=== PATIENT | male | born 1970 | race African-American/Black ===

== ENCOUNTER 2018-12-27 08:32 | Inpatient (IN) | payer OTHER ==
[2018-12-27 10:05] VITALS: BMI 28.8
--- NOTE | 2018-12-27 11:11 | HP ---
CIWA Score Nausea/Vomitin-No Nausea/No Vomiting Muscle Tremors: 1-None Visible, but [place] Anxiety: 1-Mildly Anxious Agitation: 1-Slight > Activity Paroxysmal Sweats: No Perspiration Orientation: 0-Oriented Tacttile Disturbances: 1-Very Mild Itch/Numbness Auditory Disturbances: 1-Very Mild Visual Disturbances: 0-None Headache: 1-Very Mild CIWA-Ar Total Score: 6 - Admission Criteria OASAS Guidelines: Admission for Medically Managed Detox: Requires at least one of the followin. CIWA greater than 12 2. Seizures within the past 24 hours 3. Delirium tremens within the past 24 hours 4. Hallucinations within the past 24 hours 5. Acute intervention needed for co occurring medical disorder 6. Acute intervention needed for co occurring psychiatric disorder 7. Severe withdrawal that cannot be handled at a lower level of care (continued vomiting, continued diarrhea, abnormal vital signs) requiring intravenous medication and/or fluids 8. Admission ROS [facility] - HPI Chief Complaint: i need help to stop using cocaine and marijuna Allergies/Adverse Reactions: Allergies Allergy/AdvReac Type Severity Reaction Status Date / Time No Known Allergies Allergy Verified 12/27/18 09:56 History of Present Illness: this 48 years old male with cocaine and marijuana dependence seeking rehab, last rehab 05/11 in [place] cad s/p angioplasty with 2 stents at [facility] longest sobriety 6 months has been in out patient program in [place] 6 months positive ppd for rehab as protocol Exam Limitations: No Limitations - Ebola screening Have you traveled outside of the country in the last 21 days: No (N) Have you had contact with anyone from an Ebola affected area: No Do you have a fever: No - Review of Systems Constitutional: No Symptoms Reported EENT: reports: No Symptoms Reported Respiratory: reports: No Symptoms reported Cardiac: reports: No Symptoms Reported, Other (cad s/p angioplasty with stent 2007.11/22/18 [facility]) GI: reports: No Symptoms Reported : reports: No Symptoms Reported Musculoskeletal: reports: No Symptoms Reported Integumentary: reports: No Symptoms Reported Neuro: reports: No Symptoms reported Endocrine: reports: No Symptoms Reported Hematology: reports: No Symptoms Reported Psychiatric: reports: No Sypmtoms Reported, Judgement Intact, Mood/Affect Appropiate, Orientated x3 Other Systems: Reviewed and Negative Patient History - Patient Medical History Hx Anemia: No Hx Asthma: No Hx Chronic Obstructive Pulmonary Disease (COPD): No Hx Cancer: No Hx Cardiac Disorders: Yes (cad s/p angioplasty with stent 11/22/18 ,2007) Hx Congestive Heart Failure: No Hx Hypertension: Yes (no med) Hx Hypercholesterolemia: Yes (on med atrovastin 80 mgs po hs) Hx Pacemaker: No HX Cerebrovascular Accident: No Hx Seizures: No Hx Dementia: No Hx Diabetes: No Hx Gastrointestinal Disorders: No Hx Liver Disease: No Hx Genitourinary Disorders: No Hx Sexually Transmitted Disorders: No Hx Renal Disease (ESRD): No Hx Thyroid Disease: No Hx Human Immunodeficiency Virus (HIV): No (last 11/10 negative) Hx Hepatitis C: No Hx Depression: Yes (NOT ON ANY MEDS) Hx Suicide Attempt: No Hx Bipolar Disorder: No Hx Schizophrenia: No Other Medical History: no suicidal,no himicidal - Patient Surgical History Past Surgical History: Yes Hx Neurologic Surgery: No Hx Cataract Extraction: No Hx Cardiac Surgery: Yes (2 coronary stents 2007,11/22/18 at [facility]) Hx Lung Surgery: No Hx Breast Surgery: No Hx Breast Biopsy: No Hx Abdominal Surgery: No Hx Appendectomy: No Hx Cholecystectomy: No Hx Genitourinary Surgery: No Hx Section: No Hx Orthopedic Surgery: No Anesthesia Reaction: No - PPD History Previous Implant?: Yes Documented Results: Positive w/o proof Implanted On Prior [facility] Admission?: No Date: 11/12/12 PPD to be Administered?: No - Smoking Cessation Smoking history: Former smoker Have you smoked in the past 12 months: No Aproximately how many cigarettes per day: 1 If you are a former smoker, when did you quit?: 2 years ago Cigars Per Day: 2 Hx Chewing Tobacco Use: No Initiated information on smoking cessation: Yes 'Breaking Loose' booklet given: 12/27/18 - Substance & Tx. History Hx Alcohol Use: No Hx Substance Use: Yes Substance Use Type: Cocaine, Marijuana Hx Substance Use Treatment: Yes (05/11 in [place]) - Substances abused Cocaine Substance route: Smoking Frequency: Daily Amount used: 1/2 GRAM Age of first use: 14 Date of last use: 12/26/18 Marijuana/Hashish Substance route: Smoking Frequency: 1-2 times per week Amount used: 10$ Age of first use: 14 Date of last use: 12/27/18 Family Disease History - Family Disease History Family Disease History: Heart Disease: Father (HTN,PACEMAKER), Mother (HTN), Sister (HTN) Admission Physical Exam S - Vital Signs Vital Signs: Vital Signs - 24 hr 12/27/18 10:01 Temperature 97.9 F Pulse Rate 82 Respiratory 18 Rate Blood Pressure 150/79 - Physical General Appearance: Yes: Within Normal Limits HEENTM: Yes: Normal ENT Inspection, MERLY, Pharynx Normal Respiratory: Yes: Within Normal Limits, Lungs Clear, Normal Breath Sounds Neck: Yes: Within Normal Limits, Supple, Trachea in good position Breast: Yes: Within Normal Limits Cardiology: Yes: Within Normal Limits, Regular Rhythm, Regular Rate, S1, S2 Abdominal: Yes: Within Normal Limits Genitourinary: Yes: Within Normal Limits Back: Yes: Within Normal Limits Musculoskeletal: Yes: Within Normal Limits Extremities: Yes: Within Normal Limits Neurological: Yes: garage mechanic II-XII NML intact, Alert, Motor Strength 5/5 Integumentary: Yes: Within Normal Limits Lymphatic: Yes: Within Normal Limits - Diagnostic (1) Cocaine dependence Current Visit: No Status: Active (2) coronary artery disease Current Visit: No Status: Active (3) Cannabis dependence Current Visit: No Status: Acute (4) Status post angioplasty with stent Current Visit: Yes Status: Acute Cleared for Admission [facility] - Detox or Rehab Claeared for Rehab Admission: Yes Breathalyzer - Breathalyzer Breathalyzer: 0 Urine Drug Screen - Test Device Lot number: [id number] Expiration date: 09/21/20 - Control Is test valid?: Yes - Results Drug screen NEGATIVE: No Urine drug screen results: THC-Marijuana, ANISA-Cocaine Inpatient Rehab Admission - Rehab Decision to Admit Inpatient rehab admission?: Yes - Initial Determination Are CD services needed?: Yes Free of communicable disease: Yes Not in need of hospitalization: Yes - Rehab Admission Criteria Previous failed treatment: Yes Poor recovery environment: Yes Comorbidities: Yes Lacks judgement: No Patient is meeting Inpatient Rehab admission criteria:: Yes
[2018-12-27] MEDS ORDERED: hydrOXYzine PAMOATE 50 MG CAPSULE (FP) PO PRN (11:26)
[2018-12-27] MEDS ORDERED: MAGNESIUM CITRATE 300 ML BOTTLE PO PRN (11:26)
[2018-12-27] MEDS ORDERED: ACETAMINOPHEN 325 MG TABLET (FP) PO PRN (11:26)
[2018-12-27] MEDS ORDERED: MAG HYDROX/AL HYDROX/SIMETH 30 ML UNIT-DOSE CUP PO PRN (11:26)
[2018-12-27] MEDS ORDERED: P-EPHED 60MG/TRIPROLIDI 2.5MG TABLET PO PRN (11:26)
[2018-12-27] MEDS ORDERED: guaiFENesin 200 MG/10 ML 10 ML UNIT-DOSE CUPS PO PRN (11:26)
[2018-12-27] MEDS ORDERED: LOPERAMIDE HCL 2 MG CAPSULE PO PRN (11:26)
[2018-12-27] MEDS ORDERED: MAGNESIUM HYDROX 2400MG/30ML ORAL SUSPENSION 30 ML CUP PO PRN (11:26)
[2018-12-27] MEDS: ASPIRIN 81 MG CHEWABLE TABLETS PO SCH (12:13)
[2018-12-27] MEDS: MENTHOL/PHENOL 1 EACH UD MM PRN ×2 (12:35→21:40)
--- NOTE | 2018-12-27 12:48 | EKG ---
Test Reason : Blood Pressure : / mmHG Vent. Rate : 074 BPM Atrial Rate : 074 BPM P-R Int : 140 ms QRS Dur : 098 ms QT Int : 388 ms P-R-T Axes : 053 055 054 degrees QTc Int : 430 ms NORMAL SINUS RHYTHM MODERATE VOLTAGE CRITERIA FOR LVH, MAY BE NORMAL VARIANT BORDERLINE ECG WHEN COMPARED WITH ECG OF 16-OCT-2011 00:44, NO SIGNIFICANT CHANGE WAS FOUND Confirmed by CHECO PEARCE MD ([id number]) on 12/27/2018 12:48:07 PM Referred By: Confirmed By:CHECO PEARCE MD
[2018-12-27] MEDS ORDERED: LISINOPRIL 20 MG TABLET (FP) PO ONE (13:45)
[2018-12-27] MEDS: ISOSORBIDE DINITRATE 20 MG TABLET (FP) PO SCH ×2 (15:00→17:31)
[2018-12-27 15:05] LABS: HEMATOCRIT 43.5 % (35.4-49); HEMOGLOBIN 14.4 GM/dL (11.7-16.9); MCH 29.9 pg (25.7-33.7); MEAN CELL VOLUME 90.5 fl (80-96); MEAN PLT VOLUME 7.7 fl (7.5-11.1); PLATELET COUNT 324 K/MM3 (134-434); RDW 13.7 % (11.9-15.9); WHITE BLOOD COUNT 12.6 K/mm3 (4.0-10.0)
[2018-12-27 15:07] LABS: ALBUMIN 4.3 g/dl (3.4-5.0); BILIRUBIN,TOTAL 0.6 mg/dL (0.2-1); CALCIUM 9.1 mg/dL (8.5-10.1); CREATININE 1.4 mg/dL (0.55-1.3); POTASSIUM 4.2 mmol/L (3.5-5.1)
[2018-12-27 15:15] LABS: EPI CELLS 1.4 /HPF (0-5/HPF); HYALINE CASTS 8 /lpf (0-8); URINE APPEARANCE CLOUDY; URINE BACTERIA 118.7 /hpf (NEGATIVE); URINE BILIRUBIN NEGATIVE (NEGATIVE); URINE COLOR YELLOW; URINE GLUCOSE (UA) NEGATIVE (NEGATIVE); URINE KETONE 1+ (NEGATIVE); URINE LEUK ESTERASE 3+ (NEGATIVE); URINE NITRITE NEGATIVE (NEGATIVE); URINE PROTEIN TRACE (NEGATIVE); URINE RBC 6 /hpf (0-4); URINE UROBILINOGEN 0.2 mg/dL (0.2-1.0); URINE WBC 687 /hpf (0-5)
[2018-12-27] MEDS: THIAMINE HCL 100 MG TABLET (FP) PO SCH (21:39)
[2018-12-27] MEDS: CYCLOBENZAPRINE HCL 10 MG TABLET (FP) PO SCH (21:39)
[2018-12-27] MEDS: ATORVASTATIN CA 80 MG TABLET (FP) PO SCH (21:39)
[2018-12-28] MEDS: MENTHOL/PHENOL 1 EACH UD MM PRN ×3 (07:49→21:50)
[2018-12-28] MEDS: PRENATAL VITAMINS W/ FOLIC ACID TABLET (FP) PO SCH (10:39)
[2018-12-28] MEDS: ASPIRIN 81 MG CHEWABLE TABLETS PO SCH (10:39)
[2018-12-28] MEDS: LISINOPRIL 10 MG TABLET (FP) PO SCH (10:39)
[2018-12-28] MEDS: ISOSORBIDE DINITRATE 20 MG TABLET (FP) PO SCH ×2 (10:40→17:08)
--- NOTE | 2018-12-28 10:52 | PN ---
[facility] Progress Note Note: LAB REVIEW: Laboratory Tests 12/27/18 12/27/18 12/27/18 11:45 11:45 11:45 WBC 12.6 H RBC 4.80 Hgb 14.4 Hct 43.5 MCV 90.5 MCH 29.9 MCHC 33.0 RDW 13.7 Plt Count 324 MPV 7.7 Sodium 136 Potassium 4.2 Chloride 101 Carbon Dioxide 26 Anion Gap 9 BUN 25 H Creatinine 1.4 H Est GFR (CKD-EPI)AfAm 67.42 Est GFR (CKD-EPI)NonAf 58.17 Random Glucose 80 Calcium 9.1 Total Bilirubin 0.6 AST 77 H ALT 96 H Alkaline Phosphatase 115 Total Protein 8.0 Albumin 4.3 Triglycerides 83 Cholesterol 184 Total LDL Cholesterol 94 HDL Cholesterol 74 H Urine Color Urine Appearance Urine pH Ur Specific [place] Urine Protein Urine Glucose (UA) Urine Ketones Urine Blood Urine Nitrite Urine Bilirubin Urine Urobilinogen Ur Leukocyte Esterase Urine WBC (Auto) Urine RBC (Auto) Urine Casts (Auto) U Epithel Cells (Auto) Urine Bacteria (Auto) RPR Titer Nonreactive 12/27/18 11:45 WBC RBC Hgb Hct MCV MCH MCHC RDW Plt Count MPV Sodium Potassium Chloride Carbon Dioxide Anion Gap BUN Creatinine Est GFR (CKD-EPI)AfAm Est GFR (CKD-EPI)NonAf Random Glucose Calcium Total Bilirubin AST ALT Alkaline Phosphatase Total Protein Albumin Triglycerides Cholesterol Total LDL Cholesterol HDL Cholesterol Urine Color Yellow Urine Appearance Cloudy Urine pH 5.0 Ur Specific [place] 1.028 Urine Protein Trace Urine Glucose (UA) Negative Urine Ketones 1+ H Urine Blood 1+ H Urine Nitrite Negative Urine Bilirubin Negative Urine Urobilinogen 0.2 Ur Leukocyte Esterase 3+ H Urine WBC (Auto) 687 Urine RBC (Auto) 6 Urine Casts (Auto) 8 U Epithel Cells (Auto) 1.4 Urine Bacteria (Auto) 118.7 RPR Titer ABN LABS NOTED PLAN;REPEAT CBC;CMP;UA ON 12/30/18
--- NOTE | 2018-12-28 15:54 | PN ---
[facility] Progress Note (SOAP) Subjective: C/O SORETHROAT FOR THREE DAYS. REPORTS HE WAS GIVEN THROAT LOZENGES BUT NOT EFFECTIVE. DENIES COUGH OR RUNNY NOSE. HX OF ASTHMA. PT REPORTS HE SNORES WHILE SLEEPING. Vital Signs - 24 hr 12/27/18 12/28/18 12/28/18 17:35 00:30 03:30 Pulse Rate 86 Respiratory 18 18 18 Rate Blood Pressure 135/70 12/28/18 12/28/18 07:12 10:00 Pulse Rate 71 79 Respiratory 18 Rate Blood Pressure 134/80 148/78 Objective: 12/28/18 15:54 Vital Signs - 24 hr 12/27/18 12/28/18 12/28/18 17:35 00:30 03:30 Pulse Rate 86 Respiratory 18 18 18 Rate Blood Pressure 135/70 12/28/18 12/28/18 07:12 10:00 Pulse Rate 71 79 Respiratory 18 Rate Blood Pressure 134/80 148/78 CARDIAC:S1 S2 RRR (-)MM THROAT EXAM:WNL LUNGS:CTA Assessment: 12/28/18 15:57 NORMAL EXAM-UNREMARKABLE Plan: CEPASTAT LOZENGES PRN FOLLOW UP WITH STAFF IF NOT BETTER.
[2018-12-28] MEDS: CYCLOBENZAPRINE HCL 10 MG TABLET (FP) PO SCH (21:50)
[2018-12-28] MEDS: THIAMINE HCL 100 MG TABLET (FP) PO SCH (21:50)
[2018-12-28] MEDS: ATORVASTATIN CA 80 MG TABLET (FP) PO SCH (21:50)
[2018-12-29 10:00] LABS: EPI CELLS 0.1 /HPF (0-5/HPF); HYALINE CASTS 0 /lpf (0-8); PH,URINE 6.5 (5.0-8.0); URINE APPEARANCE CLOUDY; URINE BACTERIA 410.2 /hpf (NEGATIVE); URINE BILIRUBIN NEGATIVE (NEGATIVE); URINE COLOR YELLOW; URINE GLUCOSE (UA) NEGATIVE (NEGATIVE); URINE KETONE NEGATIVE (NEGATIVE); URINE LEUK ESTERASE 3+ (NEGATIVE); URINE NITRITE NEGATIVE (NEGATIVE); URINE PROTEIN NEGATIVE (NEGATIVE); URINE RBC 3 /hpf (0-4); URINE UROBILINOGEN 0.2 mg/dL (0.2-1.0); URINE WBC 286 /hpf (0-5)
[2018-12-29] MEDS: ISOSORBIDE DINITRATE 20 MG TABLET (FP) PO SCH ×2 (11:13→17:03)
[2018-12-29] MEDS: ASPIRIN 81 MG CHEWABLE TABLETS PO SCH (11:13)
[2018-12-29] MEDS: LISINOPRIL 10 MG TABLET (FP) PO SCH (11:13)
[2018-12-29] MEDS: PRENATAL VITAMINS W/ FOLIC ACID TABLET (FP) PO SCH (11:13)
[2018-12-29] MEDS: MENTHOL/PHENOL 1 EACH UD MM PRN ×2 (11:14→21:42)
[2018-12-29] MEDS: ATORVASTATIN CA 80 MG TABLET (FP) PO SCH (21:41)
[2018-12-29] MEDS: THIAMINE HCL 100 MG TABLET (FP) PO SCH (21:41)
[2018-12-29] MEDS: CYCLOBENZAPRINE HCL 10 MG TABLET (FP) PO SCH (21:41)
[2018-12-30] MEDS: LISINOPRIL 10 MG TABLET (FP) PO SCH (10:15)
[2018-12-30] MEDS: ISOSORBIDE DINITRATE 20 MG TABLET (FP) PO SCH ×2 (10:15→17:29)
[2018-12-30] MEDS: ASPIRIN 81 MG CHEWABLE TABLETS PO SCH (10:15)
[2018-12-30] MEDS: PRENATAL VITAMINS W/ FOLIC ACID TABLET (FP) PO SCH (10:15)
[2018-12-30] MEDS: MENTHOL/PHENOL 1 EACH UD MM PRN ×2 (10:16→21:51)
[2018-12-30 12:43] LABS: ALBUMIN 3.8 g/dl (3.4-5.0); BASO % 0.7 % (0-2.0); BILIRUBIN,TOTAL 0.4 mg/dL (0.2-1); BLOOD UREA NITROGEN 13.4 mg/dL (7-18); CALCIUM 9.2 mg/dL (8.5-10.1); CREATININE 1.2 mg/dL (0.55-1.3); EOS % 6.6 % (0-4.5); HEMOGLOBIN 13.4 GM/dL (11.7-16.9); LYMPH % 24.7 % (8-40); MCHC 33.4 g/dl (32.0-35.9); MEAN CELL VOLUME 89.9 fl (80-96); MEAN PLT VOLUME 7.7 fl (7.5-11.1); MONO % 11.7 % (3.8-10.2); NEUT % 56.3 % (42.8-82.8); RBC 4.45 M/mm3 (4.00-5.60); RDW 13.4 % (11.9-15.9); TOT PROT 7.1 g/dl (6.4-8.2); WHITE BLOOD COUNT 5.5 K/mm3 (4.0-10.0)
[2018-12-30 19:20] LABS: PLATELET COUNT 247 K/MM3 (134-434)
[2018-12-30] MEDS: CYCLOBENZAPRINE HCL 10 MG TABLET (FP) PO SCH (21:51)
[2018-12-30] MEDS: THIAMINE HCL 100 MG TABLET (FP) PO SCH (21:51)
[2018-12-30] MEDS: ATORVASTATIN CA 80 MG TABLET (FP) PO SCH (21:51)
[2018-12-31] MEDS: PRENATAL VITAMINS W/ FOLIC ACID TABLET (FP) PO SCH (10:10)
[2018-12-31] MEDS: LISINOPRIL 10 MG TABLET (FP) PO SCH (10:10)
[2018-12-31] MEDS: ASPIRIN 81 MG CHEWABLE TABLETS PO SCH (10:10)
[2018-12-31] MEDS: ISOSORBIDE DINITRATE 20 MG TABLET (FP) PO SCH ×2 (10:10→17:26)
[2018-12-31] MEDS: CYCLOBENZAPRINE HCL 10 MG TABLET (FP) PO SCH (21:50)
[2018-12-31] MEDS: THIAMINE HCL 100 MG TABLET (FP) PO SCH (21:50)
[2018-12-31] MEDS: MENTHOL/PHENOL 1 EACH UD MM PRN (21:51)
[2018-12-31] MEDS: ATORVASTATIN CA 80 MG TABLET (FP) PO SCH (21:51)
[2019-01-01] MEDS: ISOSORBIDE DINITRATE 20 MG TABLET (FP) PO SCH ×2 (10:43→17:46)
[2019-01-01] MEDS: LISINOPRIL 10 MG TABLET (FP) PO SCH (10:43)
[2019-01-01] MEDS: ASPIRIN 81 MG CHEWABLE TABLETS PO SCH (10:43)
[2019-01-01] MEDS: PRENATAL VITAMINS W/ FOLIC ACID TABLET (FP) PO SCH (10:43)
[2019-01-01] MEDS: THIAMINE HCL 100 MG TABLET (FP) PO SCH (21:35)
[2019-01-01] MEDS: ATORVASTATIN CA 80 MG TABLET (FP) PO SCH (21:35)
[2019-01-01] MEDS: CYCLOBENZAPRINE HCL 10 MG TABLET (FP) PO SCH (21:35)
[2019-01-02] MEDS: PRENATAL VITAMINS W/ FOLIC ACID TABLET (FP) PO SCH (10:49)
[2019-01-02] MEDS: ASPIRIN 81 MG CHEWABLE TABLETS PO SCH (10:49)
[2019-01-02] MEDS: LISINOPRIL 10 MG TABLET (FP) PO SCH (10:49)
[2019-01-02] MEDS: ISOSORBIDE DINITRATE 20 MG TABLET (FP) PO SCH ×2 (10:49→18:00)
[2019-01-02] MEDS: CYCLOBENZAPRINE HCL 10 MG TABLET (FP) PO SCH (21:50)
[2019-01-02] MEDS: THIAMINE HCL 100 MG TABLET (FP) PO SCH (21:50)
[2019-01-02] MEDS: ATORVASTATIN CA 80 MG TABLET (FP) PO SCH (21:50)
--- NOTE | 2019-01-03 09:46 | PN ---
[facility] Progress Note Note: LAB REVIEW-REPEAT UA; RESULT: Laboratory Tests 12/27/18 12/27/18 12/27/18 11:45 11:45 11:45 WBC 12.6 H RBC 4.80 Hgb 14.4 Hct 43.5 MCV 90.5 MCH 29.9 MCHC 33.0 RDW 13.7 Plt Count 324 MPV 7.7 Absolute Neuts (auto) Neutrophils % Lymphocytes % Monocytes % Eosinophils % Basophils % Nucleated RBC % Sodium 136 Potassium 4.2 Chloride 101 Carbon Dioxide 26 Anion Gap 9 BUN 25 H Creatinine 1.4 H Est GFR (CKD-EPI)AfAm 67.42 Est GFR (CKD-EPI)NonAf 58.17 Random Glucose 80 Calcium 9.1 Total Bilirubin 0.6 AST 77 H ALT 96 H Alkaline Phosphatase 115 Total Protein 8.0 Albumin 4.3 Triglycerides 83 Cholesterol 184 Total LDL Cholesterol 94 HDL Cholesterol 74 H Urine Color Urine Appearance Urine pH Ur Specific [place] Urine Protein Urine Glucose (UA) Urine Ketones Urine Blood Urine Nitrite Urine Bilirubin Urine Urobilinogen Ur Leukocyte Esterase Urine WBC (Auto) Urine RBC (Auto) Urine Casts (Auto) U Epithel Cells (Auto) Urine Bacteria (Auto) RPR Titer Nonreactive 12/27/18 12/29/18 12/30/18 11:45 07:45 10:20 WBC 5.5 RBC 4.45 Hgb 13.4 Hct 40.0 MCV 89.9 MCH 30.0 MCHC 33.4 RDW 13.4 Plt Count 247 D MPV 7.7 Absolute Neuts (auto) 3.1 Neutrophils % 56.3 Lymphocytes % 24.7 Monocytes % 11.7 H Eosinophils % 6.6 H D Basophils % 0.7 Nucleated RBC % 0 Sodium Potassium Chloride Carbon Dioxide Anion Gap BUN Creatinine Est GFR (CKD-EPI)AfAm Est GFR (CKD-EPI)NonAf Random Glucose Calcium Total Bilirubin AST ALT Alkaline Phosphatase Total Protein Albumin Triglycerides Cholesterol Total LDL Cholesterol HDL Cholesterol Urine Color Yellow Yellow Urine Appearance Cloudy Cloudy Urine pH 5.0 6.5 D Ur Specific [place] 1.028 1.011 Urine Protein Trace Negative Urine Glucose (UA) Negative Negative Urine Ketones 1+ H Negative Urine Blood 1+ H Trace Urine Nitrite Negative Negative Urine Bilirubin Negative Negative Urine Urobilinogen 0.2 0.2 Ur Leukocyte Esterase 3+ H 3+ H Urine WBC (Auto) 687 286 Urine RBC (Auto) 6 3 Urine Casts (Auto) 8 0 U Epithel Cells (Auto) 1.4 0.1 Urine Bacteria (Auto) 118.7 410.2 RPR Titer 12/30/18 10:20 WBC RBC Hgb Hct MCV MCH MCHC RDW Plt Count MPV Absolute Neuts (auto) Neutrophils % Lymphocytes % Monocytes % Eosinophils % Basophils % Nucleated RBC % Sodium 141 Potassium 4.0 Chloride 106 Carbon Dioxide 30 Anion Gap 5 L BUN 13.4 Creatinine 1.2 Est GFR (CKD-EPI)AfAm 81.23 Est GFR (CKD-EPI)NonAf 70.09 Random Glucose 104 Calcium 9.2 Total Bilirubin 0.4 AST 32 ALT 74 H Alkaline Phosphatase 98 Total Protein 7.1 Albumin 3.8 Triglycerides Cholesterol Total LDL Cholesterol HDL Cholesterol Urine Color Urine Appearance Urine pH Ur Specific [place] Urine Protein Urine Glucose (UA) Urine Ketones Urine Blood Urine Nitrite Urine Bilirubin Urine Urobilinogen Ur Leukocyte Esterase Urine WBC (Auto) Urine RBC (Auto) Urine Casts (Auto) U Epithel Cells (Auto) Urine Bacteria (Auto) RPR Titer Microbiology 12/29/18 07:45 Urine - Urine Clean Catch Urine Culture - Final Enterococcus Faecalis SEE MICRO FOR SENSITIVITY RESULT. SENSITIVE TO PENICILLIN A:ACUTE UTI WITH HEMATURIA PLAN:AMOXICILLIN 500 MG PO TID X 7 DAYS INCREASE PO FLUIDS.
[2019-01-03] MEDS: LISINOPRIL 10 MG TABLET (FP) PO SCH (10:17)
[2019-01-03] MEDS: PRENATAL VITAMINS W/ FOLIC ACID TABLET (FP) PO SCH (10:17)
[2019-01-03] MEDS: ISOSORBIDE DINITRATE 20 MG TABLET (FP) PO SCH ×2 (10:17→17:28)
[2019-01-03] MEDS: ASPIRIN 81 MG CHEWABLE TABLETS PO SCH (10:17)
[2019-01-03] MEDS ORDERED: cloNIDine HCL 0.1 MG TABLET PO PRN (12:56)
--- NOTE | 2019-01-03 13:06 | PN ---
[facility] Progress Note Note: THIS ELECTRIC FURNACE OPERATOR MET WITH THIS PATIENT TODAY TO DISCUSS HIS HOME MEDICATIONS IN HIS [facility]. PT REPORTS HE STOPPED TAKING CLOPIDOGREL(PLAVIX) 75 MG PO DAILY FEW MONTHS AGO AND THAT HIS DOCTOR DID NOT REORDER IT AND HE WAS GETTING EASY BRUISING SO HE(PT) STOPPED IT. PT WAS ON LOSARTAN 50 /HCTZ 12.5MG AND EXPLAINED THE DOCTOR STOPPED BOTH LOSARTAN AND HCTZ FOR REASON HE SAYS HE WAS NOT TOLD. PT ALSO REPORTS HE DOES NOT WANT TO CONTINUE WITH WELLBUTRIN XL 150 MG PO DAILY OR SEE THE PSYCH MD HERE AND THAT HE HAS HIS PSYCHIATRIST WHO HE WILL FOLLOW UP WITH AFTER HE LEAVES HERE. LAST RX POSTED IN HIS [facility] WERE IN OCTOBER AND NOVEMBER 2018 STATES "I HAVE MY MEDICINES AT HOME. PT IS ALERT O X 3. DENIES S/H/I. NAD. PT REPORTS HE HAS A PCP, DR. HAN AT [address] [place] [address] HARPER BAEZA ON [address] [place] [address](PH:[phone]. Vital Signs - 24 hr 01/03/19 01/03/19 01/03/19 00:30 03:30 06:42 Temperature 97.6 F Pulse Rate 66 Respiratory 18 18 18 Rate Blood Pressure 146/76 PLAN:PSYCH CONSULT FOR MEDS ORDERED BUT PT REFUSED.
[2019-01-03] MEDS: AMOXICILLIN 500 MG CAPSULE (FP) PO SCH ×2 (14:22→21:46)
[2019-01-03] MEDS ORDERED: NITROGLYCERIN SUBLINGUAL 1/150 0.4 MG TAB SL PRN (15:28)
[2019-01-03] MEDS: THIAMINE HCL 100 MG TABLET (FP) PO SCH (21:46)
[2019-01-03] MEDS: ATORVASTATIN CA 80 MG TABLET (FP) PO SCH (21:46)
[2019-01-03] MEDS: CYCLOBENZAPRINE HCL 10 MG TABLET (FP) PO SCH (21:46)
[2019-01-04] MEDS: AMOXICILLIN 500 MG CAPSULE (FP) PO SCH ×3 (07:19→22:04)
--- NOTE | 2019-01-04 10:29 | CONSULT ---
[facility] Psychiatric Consult - Data Date of interview: 01/04/19 Admission source: Self-referred Identifying data: Mr Slaughter is a 48 years old Black male living as , father of 6 children, unemployed receiving public assistance, domiciled living in a half way house seeking rehab treatment for cocaine and cannabis Substance Abuse History: Reports history of cocaine and marijuana use. refer to addiction counselor's summary for further information Medical History: Significant for hypertension, dylipidemia, low back pain, CAD with history of multiple myocardial infarctions and stent placement. Psychiatric History: Reports that his first psychiatric treatment was in 2012 at [facility] for depression. He saw Dr. Hastings and he was prescribed Ambien and low dose Risperdal. He currently receives psychiatric treatment at the [facility] in [facility] with Heath Hernandez MD and he is prescribed Wellbutrin XL 150 mg/day and Ambien 10 mg/hs. This is confirmed by external medication history from [facility] at [address] [place] [address] in [place](Script for 30 days supply of Wellbutrin XL 150 mg/day & Ambien 10 mg/hs flled on 12/04/18). Denies previous psychiatric hospitalization or suicidal attempt. At present, reports Physical/Sexual Abuse/Trauma History: Denies history of emotional, physical or sexual abuse as well as DV relationship. No service Additional Comment: Reports history of 6 previous arrests including 2 felony convictions. Denies being on parole/probation at present Mental Status Exam - Mental Status Exam Alert and Oriented to: Time, Place, Person Cognitive Function: Fair Patient Appearance: Disheveled Mood: Hopeful, Euthymic Patient Behavior: Cooperative Voice Loudness: Normal Thought Process: Intact Thought Disorder: Not Present Hallucinations: Denies Suicidal Ideation: Denies Homicidal Ideation: Denies Insight/Judgement: Fair Sleep: Poorly Appetite: Good Muscle strength/Tone: Normal Gait/Station: Normal Psychiatric Findings - Problem List ([place] 1, 2,3) (1) Depressive disorder Current Visit: Yes Status: Chronic (2) MDD (major depressive disorder) Current Visit: Yes Status: Ruled-out (3) Substance induced mood disorder Current Visit: Yes Status: Ruled-out (4) Substance-induced sleep disorder Current Visit: Yes Status: Acute (5) Cocaine dependence Current Visit: Yes Status: Acute (6) Cannabis dependence Current Visit: Yes Status: Acute (7) HTN (hypertension) Current Visit: Yes Status: Chronic (8) HLD (hyperlipidemia) Current Visit: Yes Status: Chronic (9) CAD (coronary artery disease) Current Visit: Yes Status: Chronic (10) Myocardial infarction Current Visit: Yes Status: Resolved (11) Status post angioplasty with stent Current Visit: Yes Status: Chronic - Initial Treatment Plan Initial Treatment Plan: 1) Continue Wellbutrin XL 150 mg po daily. 2) Start Melatonin 5 mg po HS prn for insomnia. 3) Continue inpatient rehabilitation
[2019-01-04] MEDS: ISOSORBIDE DINITRATE 20 MG TABLET (FP) PO SCH (10:50)
[2019-01-04] MEDS: PRENATAL VITAMINS W/ FOLIC ACID TABLET (FP) PO SCH (10:50)
[2019-01-04] MEDS: LISINOPRIL 10 MG TABLET (FP) PO SCH (10:50)
[2019-01-04] MEDS: ASPIRIN 81 MG CHEWABLE TABLETS PO SCH (10:50)
--- NOTE | 2019-01-04 11:32 | PN ---
[facility] Progress Note Note: THIS INSOLVENCY PRACTITIONER CALLED MR JAYSON'S SURVEYOR HELPER ROD DR. KEYONA BAEZA ON TO RE-CONFIRM PT'S MEDICATION. THE REPORTS THAT THIS PT HAD AN APPOINTMENT TO SEE HIM ON PAST TUESDAY BUT WAS A NO SHOW. REPORTS LAST SEEN PT ON 11/02/18 BUT HAD A PROCEDURE AT [facility] ON 11/22/18 WITH D/C SUMMARY OF 11/23/18 INDICATING "LEFT ANTERIOR DESCENDING, 2 DRUG ELUTING STENTS.. ". THE RECOMMENDS FOR PT TO CONTINUE WITH THE CARDIAC HOME MEDICATIONS BELOW: Home Medications Medication Instructions Recorded Aspirin [ASA -] 81 mg PO DAILY #30 tab.chew 01/09/19 Atorvastatin Ca [Lipitor] 80 mg PO HS 12/27/18 Isosorbide mononitrate ER 30mg PO DAILY 12/27/18 Nitroglycerin 1 tab SL [id number] PRN 01/03/19 Clopidogrel Bisulfate [Plavix -] 75 mg PO DAILY 01/04/19 PT WAS IN ROOM WITH INSOLVENCY PRACTITIONER AND LISTENED IN TO HIS DR'S RECOMMENDATION. PLAN:REORDER PLAVIX 75 MG PO DAILY; D/C ISORDIL AFTER 1800 DOSE TODAY. REORDER ISOSORBIDE MONONITRATE ER. PT STATES HE WILL CALL TO MAKE APPOINTMENT FOR HIS NEXT VISIT TO DR BAEZA AFTER DISCHARGE FROM REHAB. PT IS IN AGREEMENT WITH POC.
[2019-01-04] MEDS: CLOPIDOGREL BISULFATE 75 MG TABLET (FP) PO SCH (12:20)
[2019-01-04] MEDS ORDERED: ISOSORBIDE DINITRATE 20 MG TABLET (FP) PO ONE (18:00)
[2019-01-04] MEDS: THIAMINE HCL 100 MG TABLET (FP) PO SCH (22:04)
[2019-01-04] MEDS: CYCLOBENZAPRINE HCL 10 MG TABLET (FP) PO SCH (22:04)
[2019-01-04] MEDS: ATORVASTATIN CA 80 MG TABLET (FP) PO SCH (22:04)
[2019-01-04] MEDS: MELATONIN 5 MG TABLETS PO PRN (22:05)
[2019-01-05] MEDS: AMOXICILLIN 500 MG CAPSULE (FP) PO SCH ×3 (06:53→21:52)
[2019-01-05] MEDS: LISINOPRIL 10 MG TABLET (FP) PO SCH (10:40)
[2019-01-05] MEDS: PRENATAL VITAMINS W/ FOLIC ACID TABLET (FP) PO SCH (10:40)
[2019-01-05] MEDS: ISOSORBIDE MONONITRATE 30 MG TAB.SR.24H (FP) PO SCH (10:40)
[2019-01-05] MEDS: CLOPIDOGREL BISULFATE 75 MG TABLET (FP) PO SCH (10:40)
[2019-01-05] MEDS: ASPIRIN 81 MG CHEWABLE TABLETS PO SCH (10:41)
[2019-01-05] MEDS: MELATONIN 5 MG TABLETS PO PRN (21:52)
[2019-01-05] MEDS: ATORVASTATIN CA 80 MG TABLET (FP) PO SCH (21:52)
[2019-01-05] MEDS: THIAMINE HCL 100 MG TABLET (FP) PO SCH (21:52)
[2019-01-05] MEDS: CYCLOBENZAPRINE HCL 10 MG TABLET (FP) PO SCH (21:52)
[2019-01-06] MEDS: AMOXICILLIN 500 MG CAPSULE (FP) PO SCH ×3 (06:12→22:14)
[2019-01-06] MEDS: CLOPIDOGREL BISULFATE 75 MG TABLET (FP) PO SCH (10:29)
[2019-01-06] MEDS: ASPIRIN 81 MG CHEWABLE TABLETS PO SCH (10:29)
[2019-01-06] MEDS: PRENATAL VITAMINS W/ FOLIC ACID TABLET (FP) PO SCH (10:30)
[2019-01-06] MEDS: LISINOPRIL 10 MG TABLET (FP) PO SCH (10:30)
[2019-01-06] MEDS: ISOSORBIDE MONONITRATE 30 MG TAB.SR.24H (FP) PO SCH (10:30)
[2019-01-06] MEDS: THIAMINE HCL 100 MG TABLET (FP) PO SCH (22:14)
[2019-01-06] MEDS: ATORVASTATIN CA 80 MG TABLET (FP) PO SCH (22:14)
[2019-01-06] MEDS: CYCLOBENZAPRINE HCL 10 MG TABLET (FP) PO SCH (22:14)
[2019-01-06] MEDS: MELATONIN 5 MG TABLETS PO PRN (22:14)
[2019-01-07] MEDS: AMOXICILLIN 500 MG CAPSULE (FP) PO SCH ×3 (06:11→22:48)
[2019-01-07] MEDS: ASPIRIN 81 MG CHEWABLE TABLETS PO SCH (10:54)
[2019-01-07] MEDS: LISINOPRIL 10 MG TABLET (FP) PO SCH (10:54)
[2019-01-07] MEDS: CLOPIDOGREL BISULFATE 75 MG TABLET (FP) PO SCH (10:54)
[2019-01-07] MEDS: ISOSORBIDE MONONITRATE 30 MG TAB.SR.24H (FP) PO SCH (10:55)
[2019-01-07] MEDS: PRENATAL VITAMINS W/ FOLIC ACID TABLET (FP) PO SCH (10:55)
[2019-01-07] MEDS: ATORVASTATIN CA 80 MG TABLET (FP) PO SCH (22:02)
[2019-01-07] MEDS: MELATONIN 5 MG TABLETS PO PRN (22:02)
[2019-01-07] MEDS: THIAMINE HCL 100 MG TABLET (FP) PO SCH (22:02)
[2019-01-07] MEDS: CYCLOBENZAPRINE HCL 10 MG TABLET (FP) PO SCH (22:02)
[2019-01-08] MEDS: AMOXICILLIN 500 MG CAPSULE (FP) PO SCH ×3 (07:32→21:41)
[2019-01-08] MEDS: ASPIRIN 81 MG CHEWABLE TABLETS PO SCH (10:57)
[2019-01-08] MEDS: ISOSORBIDE MONONITRATE 30 MG TAB.SR.24H (FP) PO SCH (10:57)
[2019-01-08] MEDS: LISINOPRIL 10 MG TABLET (FP) PO SCH (10:57)
[2019-01-08] MEDS: CLOPIDOGREL BISULFATE 75 MG TABLET (FP) PO SCH (10:57)
[2019-01-08] MEDS: PRENATAL VITAMINS W/ FOLIC ACID TABLET (FP) PO SCH (10:57)
--- NOTE | 2019-01-08 17:13 | PN ---
S Progress Note Note: Patient is scheduled for discharge tomorrow. Script for 30 days supply of Wellbutrin XL 150 mg/day will be electronically transmitted to [facility] at [address] [place] [address]
[2019-01-08] MEDS: ATORVASTATIN CA 80 MG TABLET (FP) PO SCH (21:41)
[2019-01-08] MEDS: THIAMINE HCL 100 MG TABLET (FP) PO SCH (21:42)
[2019-01-08] MEDS: CYCLOBENZAPRINE HCL 10 MG TABLET (FP) PO SCH (21:42)
[2019-01-08] MEDS: MELATONIN 5 MG TABLETS PO PRN (21:42)
[2019-01-09] MEDS: AMOXICILLIN 500 MG CAPSULE (FP) PO SCH ×3 (06:30→22:04)
[2019-01-09] MEDS: PRENATAL VITAMINS W/ FOLIC ACID TABLET (FP) PO SCH (10:25)
[2019-01-09] MEDS: CLOPIDOGREL BISULFATE 75 MG TABLET (FP) PO SCH (10:25)
[2019-01-09] MEDS: LISINOPRIL 10 MG TABLET (FP) PO SCH (10:25)
[2019-01-09] MEDS: ISOSORBIDE MONONITRATE 30 MG TAB.SR.24H (FP) PO SCH (10:25)
[2019-01-09] MEDS: ASPIRIN 81 MG CHEWABLE TABLETS PO SCH (10:25)
--- NOTE | 2019-01-09 14:23 | PN ---
S Progress Note (SOAP) Subjective: PT COMPLETED REHAB AND SCHEDULED FOR DISCHARGE TOMORROW. PT MET WITH HIS COUNSELOR AND HAS BEEN REFERRED TO [place], [place] FOR CD AFTERCARE. PT REPORTS HE HAS A PCP, DR. HAN AT [address] [place] [address] [address] A[address] HARPER BAEZA ON [address] [place], [place](PH:[phone]. PT IS ALERT O X 3. DENIES S/H/I. 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 Objective: 01/09/19 14:21 Vital Signs - 24 hr 01/09/19 01/09/19 01/09/19 00:30 03:30 06:55 Temperature 97.6 F Pulse Rate 78 Respiratory 18 18 18 Rate Blood Pressure 149/86 01/09/19 10:00 Temperature Pulse Rate 92 H Respiratory Rate Blood Pressure 152/90 Laboratory Tests 12/27/18 12/27/18 12/27/18 11:45 11:45 11:45 WBC 12.6 H RBC 4.80 Hgb 14.4 Hct 43.5 MCV 90.5 MCH 29.9 MCHC 33.0 RDW 13.7 Plt Count 324 MPV 7.7 Absolute Neuts (auto) Neutrophils % Lymphocytes % Monocytes % Eosinophils % Basophils % Nucleated RBC % Sodium 136 Potassium 4.2 Chloride 101 Carbon Dioxide 26 Anion Gap 9 BUN 25 H Creatinine 1.4 H Est GFR (CKD-EPI)AfAm 67.42 Est GFR (CKD-EPI)NonAf 58.17 Random Glucose 80 Calcium 9.1 Total Bilirubin 0.6 AST 77 H ALT 96 H Alkaline Phosphatase 115 Total Protein 8.0 Albumin 4.3 Triglycerides 83 Cholesterol 184 Total LDL Cholesterol 94 HDL Cholesterol 74 H Urine Color Urine Appearance Urine pH Ur Specific [place] Urine Protein Urine Glucose (UA) Urine Ketones Urine Blood Urine Nitrite Urine Bilirubin Urine Urobilinogen Ur Leukocyte Esterase Urine WBC (Auto) Urine RBC (Auto) Urine Casts (Auto) U Epithel Cells (Auto) Urine Bacteria (Auto) RPR Titer Nonreactive 12/27/18 12/29/18 12/30/18 11:45 07:45 10:20 WBC 5.5 RBC 4.45 Hgb 13.4 Hct 40.0 MCV 89.9 MCH 30.0 MCHC 33.4 RDW 13.4 Plt Count 247 D MPV 7.7 Absolute Neuts (auto) 3.1 Neutrophils % 56.3 Lymphocytes % 24.7 Monocytes % 11.7 H Eosinophils % 6.6 H D Basophils % 0.7 Nucleated RBC % 0 Sodium Potassium Chloride Carbon Dioxide Anion Gap BUN Creatinine Est GFR (CKD-EPI)AfAm Est GFR (CKD-EPI)NonAf Random Glucose Calcium Total Bilirubin AST ALT Alkaline Phosphatase Total Protein Albumin Triglycerides Cholesterol Total LDL Cholesterol HDL Cholesterol Urine Color Yellow Yellow Urine Appearance Cloudy Cloudy Urine pH 5.0 6.5 D Ur Specific [place] 1.028 1.011 Urine Protein Trace Negative Urine Glucose (UA) Negative Negative Urine Ketones 1+ H Negative Urine Blood 1+ H Trace Urine Nitrite Negative Negative Urine Bilirubin Negative Negative Urine Urobilinogen 0.2 0.2 Ur Leukocyte Esterase 3+ H 3+ H Urine WBC (Auto) 687 286 Urine RBC (Auto) 6 3 Urine Casts (Auto) 8 0 U Epithel Cells (Auto) 1.4 0.1 Urine Bacteria (Auto) 118.7 410.2 RPR Titer 12/30/18 10:20 WBC RBC Hgb Hct MCV MCH MCHC RDW Plt Count MPV Absolute Neuts (auto) Neutrophils % Lymphocytes % Monocytes % Eosinophils % Basophils % Nucleated RBC % Sodium 141 Potassium 4.0 Chloride 106 Carbon Dioxide 30 Anion Gap 5 L BUN 13.4 Creatinine 1.2 Est GFR (CKD-EPI)AfAm 81.23 Est GFR (CKD-EPI)NonAf 70.09 Random Glucose 104 Calcium 9.2 Total Bilirubin 0.4 AST 32 ALT 74 H Alkaline Phosphatase 98 Total Protein 7.1 Albumin 3.8 Triglycerides Cholesterol Total LDL Cholesterol HDL Cholesterol Urine Color Urine Appearance Urine pH Ur Specific [place] Urine Protein Urine Glucose (UA) Urine Ketones Urine Blood Urine Nitrite Urine Bilirubin Urine Urobilinogen Ur Leukocyte Esterase Urine WBC (Auto) Urine RBC (Auto) Urine Casts (Auto) U Epithel Cells (Auto) Urine Bacteria (Auto) RPR Titer Home Medications Medication Instructions Recorded Aspirin [ASA -] 81 mg PO DAILY #30 tab.chew 01/09/14 Atorvastatin Ca [Lipitor] 80 mg PO HS 12/27/18 Nitroglycerin 1 tab SL [id number] PRN 01/03/19 Clopidogrel Bisulfate [Plavix -] 75 mg PO DAILY 01/04/19 Isosorbide Mononitrate [Isosorbide 1 tab PO DAILY 01/04/19 Mononitrate ER] Bupropion HCl [Wellbutrin Xl -] 150 mg PO DAILY #30 tab.sr.24h 01/08/19 Lisinopril [Prinivil] 10 mg PO DAILY #14 tablet 01/09/19 Assessment: 01/09/19 14:21 NAD MEDICALLY STABLE Plan: PT NOVEMBER D/C TOMORROW FOLLOW UP WITH CD AFTERCARE RECOMMENDATION. FOLLOW UP WITH PCPFOR MEDICAL MANAGEMENT WITHIN 1-2 WEEKS AFTER DISCHARGE.
[2019-01-09] MEDS: ATORVASTATIN CA 80 MG TABLET (FP) PO SCH (22:04)
[2019-01-09] MEDS: MELATONIN 5 MG TABLETS PO PRN (22:04)
[2019-01-09] MEDS: CYCLOBENZAPRINE HCL 10 MG TABLET (FP) PO SCH (22:04)
[2019-01-09] MEDS: THIAMINE HCL 100 MG TABLET (FP) PO SCH (22:04)
[2019-01-10] MEDS: AMOXICILLIN 500 MG CAPSULE (FP) PO SCH (06:46)
[2019-01-10 06:49] VITALS: TEMP 98.1
[2019-01-10] MEDS: ASPIRIN 81 MG CHEWABLE TABLETS PO SCH (10:36)
[2019-01-10] MEDS: LISINOPRIL 10 MG TABLET (FP) PO SCH (10:36)
[2019-01-10] MEDS: PRENATAL VITAMINS W/ FOLIC ACID TABLET (FP) PO SCH (10:36)
[2019-01-10] MEDS: CLOPIDOGREL BISULFATE 75 MG TABLET (FP) PO SCH (10:36)
[2019-01-10] MEDS: ISOSORBIDE MONONITRATE 30 MG TAB.SR.24H (FP) PO SCH (10:37)
--- NOTE | 2019-01-10 10:45 | PN ---
[facility] Progress Note Note: PT COMPLETED REHAB AND DISCHARGED TODAY SCHEDULED. PT IS ALERT O X 3. D/W PT TO FOLLOW UP WITH CD AFTERCARE/MEDICAL MANAGEMENT RECOMMENDED. Vital Signs - 24 hr 01/10/19 01/10/19 01/10/19 00:30 03:30 06:48 Temperature 98.1 F Pulse Rate 83 Respiratory 18 18 18 Rate Blood Pressure 152/90 01/10/19 10:00 Temperature Pulse Rate 92 H Respiratory Rate Blood Pressure 146/79
[2019-01-10 11:35] VITALS: BP 146/79; PULSE 92
== END 2019-01-10 11:10 | disposition home or self-care (01) | DRG 772 ==
LOC: YASAS 08:32 → Y5N 11:22
PROVIDERS: ADMIT Neuromusculoskeletal Medicine & OMM; ATTEND Neuromusculoskeletal Medicine & OMM
PROC: HZ42ZZZ Group Counseling for Substance Abuse Treatment, Cognitive-Behavioral (ICD-10-PCS; principal; 2018-12-27)
DX: F14.20 Cocaine dependence, uncomplicated (principal); F12.20 Cannabis dependence, uncomplicated; F32.9 Major depressive disorder, single episode, unspecified; F19.24 Other psychoactive substance dependence with psychoactive substance-induced mood disorder; F19.282 Other psychoactive substance dependence with psychoactive substance-induced sleep disorder; I10 Essential (primary) hypertension; I25.10 Atherosclerotic heart disease of native coronary artery without angina pectoris; I25.2 Old myocardial infarction; E78.5 Hyperlipidemia, unspecified; N39.0 Urinary tract infection, site not specified; R31.9 Hematuria, unspecified; M54.5 Low back pain; Z95.5 Presence of coronary angioplasty implant and graft; Z87.891 Personal history of nicotine dependence
CPT/HCPCS: 36415; 71046-TC-FY; 80053; 80061; 81003; 83721; 85025; 85027; 86593; 87086; 87186; 93005; 93010